=== PATIENT | female | born 1990 | race Caucasian/White ===

== ENCOUNTER 2016-11-19 20:59 | Outpatient (CLI) | payer OTHER, SELFPAY ==
[~2016-11-19] VITALS: Ht 162.6 cm; Wt 50.0 kg
[~2016-11-19 20:59] MED LIST: PRENTAB9 PO
[2016-11-19] MEDS ORDERED: LACTATED RINGER'S 1000 ML IV ONE (22:15)
--- NOTE | 2016-11-19 22:17 | IPNPDOC ---
Text Note Date of Service The patient was seen on 11/19/16 at 22:14. NOTE 26 y/o at ~31 weeks gestation, uncomplicated per pt (no chart to review and no passport) with ctx's causing 8/10 pain since 1700 tonight. No LOF/VB. No abnl d/c. Nl FM throughout. Last intx 4 days ago. Denioes dysuria or frequency VSS NST Cat 1 with ctx's noted q 3-4 min. SSE: fFN collected, not sent Genprobe also Wet prep collected, neg UA with 1+ LE,1+ bacetria and 10 WBC's. C/W possible UTI, urine Cx pending Cx L/T/C, fFN not sent No CVAT bilat a/p: PT Ctx's, possible UTI, will not Tx unless urine cx confirms. No PTL. Will hydrate with LR 2 L and reeval in 80-90 min after I do a on another pt. Re-eval at 0140: Continued to contract after 1.5 L LR therefore I gave her 0.25 Terb SQ. This spaced out and significantly diminished the intensity of her ctx's. Eventually they became regular again but were much more intense than prior. Wanted to go home to rest. I agree. Gave her Nifedipine 30 mg XR 1 tab prior to d/c and instructed her to take these 1 tab po q 24 hrs until all taken which will get her to 35+4 wks. STRICT PTL precautions, pt stated understanding. I rec pelvic rest and also no heavy lifting or significant physical activity for the next few weeks. Has f/u next week in the OB clinic. Sessions SESSIONS,COLIN Peña MD Nov 19, 2016 22:17
[2016-11-20] MEDS ORDERED: TERBUTALINE SULFATE 1 MG/ML VIAL (J3105) SC ONE (00:30)
[2016-11-20] MEDS ORDERED: TERBUTALINE SULFATE 1 MG/ML VIAL (J3105) As Ordered ONE (00:34)
== END 2016-11-20 01:50 | disposition home or self-care (01) ==
LOC: M LDO 20:59
PROVIDERS: ATTEND Obstetrics & Gynecology
DX: O47.03 False labor before 37 completed weeks of gestation, third trimester (principal); Z3A.31 31 weeks gestation of pregnancy
CPT/HCPCS: 59025; 81001; 87086; 87491; 87591; J3105

== ENCOUNTER 2017-01-05 09:02 | Inpatient (IN) | payer OTHER, SELFPAY ==
[2017-01-05] VITALS (30 sets, daily range): BP systolic 115–162; BP diastolic 57–89
[~2017-01-05] VITALS: Ht 162.6 cm; Wt 48.0 kg
[2017-01-05] MEDS ORDERED: TUMS500C PO (09:26)
[2017-01-05] MEDS ORDERED: LR 1,000 ML IV SCH (10:25)
[2017-01-05] MEDS ORDERED: LACTATED RINGER'S 1000 ML IV STA (10:25)
[2017-01-05 11:22] LABS: MEAN CORPUSCULAR HEMOGLOBIN 31.7 pg (27.0-33.0); MEAN CORPUSCULAR HGB CONC 35.4 g/dl (32.0-36.5); MEAN CORPUSCULAR VOLUME 89.6 fl (80.0-96.0); RED CELL DISTRIBUTION WIDTH 14.1 % (11.5-14.5); WHITE BLOOD COUNT 9.5 K/mm3 (4.0-10.0)
--- NOTE | 2017-01-05 12:37 | HPEPDOC ---
Obstetrical History & Physical General Date of Admission Jan 05, 2017 at 10:25 History of Present Illness Mariah is a 26yo with gordillo IUP at 37w4d by lmp who presents to L&D for regular, painful ctx. No LOF, scant vaginal bleeding with mucous. Feels good movement. Chief Complaint: Contractions, term Information Provided By: Patient Care Care: Good Care Dating Final EDC: Jan 22, 2017 Final EDC by: LMP Antepartum Course Diagnos(e)s renal bilateral pelviectasis, resolved. Small for dates, growth scan at 33wk: 27%ile Height (inches): 64 Admission Weight (lbs.): 112 Past Medical History Past Obstetrical History : Past Obstetrical History: Primgravida PARLOR MAID History: No pertinent history Past Medical History Medical History Neurofibromatosis type I, history of depression in 2013- resolved Surgical History: Tonsilectomy Family History Significant Family History: No pertinent family hx Social History Marital Status: Family situation: Spouse/partner home Psychosocial History: Depression * Smoker: non-smoker Alcohol: denies Drugs: denies Imunizations Tdap status: current Influenza Status: current Allergies Coded Allergies: No Known Allergies (Unverified , 09/29/16) Medications Scheduled Multivitamins/ ( 27-0.8 mg) 1 Tab Tab 1 TAB PO DAILY Scheduled PRN Calcium Carbonate (Tums) 500 Mg Chw 500 MG PO PRN PRN PRN HEARTBURN Physical Examination Physical Examination GENERAL: Alert and oriented times three. BREAST: . ABDOMEN: Gravid and non-tender to touch. FETUS: Is vertex (VTX) by sterile vaginal examination (SVE) HEART RATE: Regular rate and rhythm. LUNGS: Clear to auscultation (CTA). EXTREMITIES: trace edema BLE Vital Signs/I&O Vital Signs Date Time Temp Pulse Resp B/P Pulse Ox O2 Delivery O2 Flow Rate FiO2 01/05/17 09:21 98.7 76 18 129/86 Laboratory Data 24H LABS Laboratory Tests 2 01/05/17 11:00: Serology Scanned Report Hepatitis B Testing 01/05/17 11:08: Syphilis Serology NONREACTIVE CBC/BMP Laboratory Tests 01/05/17 11:08 Red Blood Count 4.46, Mean Corpuscular Volume 89.6, Mean Corpuscular Hemoglobin 31.7, Mean Corpuscular Hemoglobin Concent 35.4, Red Cell Distribution Width 14.1 Pertinent Laboratoy Data Blood Type: O+ RBC Antibody Screen: Negative HIV: Negative Hepatitis B: Negative Hepatitis C: Unknown Rapid Plasma Reagin: Nonreactive Rubella: Immune Varicella: Immune Chlamydia/Gonorrhea: Negative Group B Streptococcus: Negative Glucose Tolerance Test: 111 Anatomy Ultrasound Ultrasound Date: Sep 05, 2016 Placenta Location: Posterior Normal Anatomy: Yes (bilateral renal pelviectasis resolved on f/u ultrasound) Placenta Previa: No Other Ultrasounds Other Ultrasounds 12 Sep 2016: resolved bilateral renal pelviectasis 18 Dec 2016: s<d, EFW 27%ile Steroid Therapy Steroid Therapy: No Vaginal Examination Dilation: 4 cm Effacement: 80+% Station: -2 Cervical Consistency: Soft Cervical Position: Anterior Presentation: Cephalic presentation Assessment Heart Rate (FHR): 120 Variability: Moderate Accelerations: Positive Decelerations: None Tocometer Contractions: Yes Frequency: every 3-7 min. Duration: greater than 60 seconds Strength: palpated as moderate Assessment/Plan Assessment Mariah is a 26yo with gordillo IUP at 37w4d by lmp in active labor with SCE 4/90/-2 with ctx q3-5 min. Cat I tracing. GBS negative. Cephalic by SCE. PMhx significant for neurofibromatosis I and depression in 2012- resolved. PNC significant for resolved bilateral pelviectasis, s<d with recent GS showing EFW 27%ile Plan Admit and orient. 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 Diet: clear liquids Group B Streptococcus (GBS) negative Labs and intravenous (IV) per unit protocol. Lactated Ringers (LR): Bolus 500 mL, then at 125 mL/hr. Anticipate normal spontaneous delivery () epidural as desired C-S as appropriate. Dr. Yvan Rahman MD [place] MD Jan 05, 2017 12:37
[2017-01-05] MEDS ORDERED: FENTANYL 2MCG/ML ROPIVACAINE 0.2% NACL 250 ML CADD As Ordered ONE (14:51)
[2017-01-05] MEDS ORDERED: ePHEDrine SULFATE 25 MG/5 ML(5MG/ML) SYRINGE IV PRN (16:00)
[2017-01-05] MEDS ORDERED: EPIDURAL COMMENT XX SCH (16:00)
[2017-01-05] MEDS ORDERED: diphenhydrAMINE INJ 50MG/ML VIAL (J1200) IV PRN (16:00)
[2017-01-05] MEDS ORDERED: ONDANSETRON 4MG/2ML VIAL (J2405) IV PRN (16:00)
[2017-01-05] MEDS ORDERED: REFRIGERATOR IV KEYS XX PRN (16:00)
[2017-01-05] MEDS ORDERED: NALOXONE INJ 0.4 MG/1 ML VIAL (J2310) IV PRN (16:00)
[2017-01-05] MEDS ORDERED: FENTANYL/ROPIVACAINE/NACL CADD 250 ML EPIDURAL SCH (16:00)
[2017-01-05] MEDS ORDERED: EPIDURAL/PCA KEYS XX PRN (16:00)
[2017-01-05] MEDS ORDERED: OXYTOCIN 30 UNITS IN 0.9% NaCl 500ML IV BAG (J2590) As Ordered ONE (19:17)
[2017-01-05] MEDS ORDERED: DIBUCAINE 1% OINTMENT 30GM TOP PRN (23:30)
[2017-01-05] MEDS ORDERED: ACETAMINOPHEN 500 MG TAB PO PRN (23:30)
[2017-01-05] MEDS ORDERED: RHOGAM 300 MCG (1500 IU) INJ (J2790) IM SCH (23:30)
[2017-01-05] MEDS ORDERED: OXYTOCIN DRIP 30 UNITS in APPROPRIATE DILUENT 1 EA IV SCH (23:30)
[2017-01-05] MEDS ORDERED: MEASLES,MUMPS,RUBELLA VACCINE INJ (MMR-II) (90707) SC SCH (23:30)
--- NOTE | 2017-01-05 23:34 | DNPDOC ---
Delivery Note Delivery Note DATE OF DELIVERY: Jan 05, 2017 at 2301 PREDELIVERY DIAGNOSIS: 37 4/7 weeks' gestation and labor. 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 Gabriela Rahman MD ANESTHESIA: epidural ESTIMATED BLOOD LOSS: 150 mL. FINDINGS: 6 pound 2 ounce female , Score 9/9 DELIVERY SUMMARY: Mariah is a 26yo G1 now P1001 who was admitted to L&D for active labor. She had an uncomplicated of a viable female at 2301 on 05 Jan 2017 at 37w4d. Head delivered OA, restituted ANTOLIN. No nuchal cord. Right anterior shoulder delivered followed by posterior shoulder and corpus. Cord clamped x2 and cut by FOB. Infant mouth/nares bulb suctioned. Spontaneous cry noted. Baby placed on mother's abdomen. Apgars 9/9, weight 2782g or 6lb2oz. Cord blood obtained due to maternal blood type of O pos. With gentle downward guidance and suprapubic pressure, placenta delivered spontaneously and intact. Fundal massage until both uterine fundus and lower uterine segment firm; fundus at U-1. Pitocin 30 units IV bolus administered. Inspection of perineum and vaginal wall revealed superficial left labial laceration closed with 3.0 vicryl suture with good hemostasis. Mom and infant in stable condition. MD REYNA Lynch KATRINA D. MD Jan 05, 2017 23:34
[2017-01-06 01:06] VITALS: BP 146/78
[2017-01-06 06:52] VITALS: BP 123/85
[2017-01-06] MEDS: IBUPROFEN 800 MG TAB PO PRN ×2 (08:04→17:19)
--- NOTE | 2017-01-06 08:23 | IPNPDOC ---
Text Note Date of Service The patient was seen on 01/06/17. NOTE Mariah is a 26yo G1 now P1001 doing well on PPD 1 s/p uncomplicated of viable female infant on 01/05. Tolerating regular diet, ambulating and voiding without problem. Breast feeding. Lochia minimal. Pain controlled. Vitals wnl General: WDWN, resting comfortable Cardiac: S1S2 present, no murmur Lungs: CTAB, no w/c/r Abdomen: soft, non-tender to palpation, fundus firm at u-1cm Extremities: trace edema of BLE, no tenderness with palpation of calves Assessment: Mariah is a 26yo G1 now P1001 doing well on PPD 1 s/p uncomplicated . Hemodynamically stable with no e/o infection. Plan: likely discharge to home tomorrow, routine care today, regular diet, d/c IV, encourage breast feeding, motrin/tylenol prn pain, desires minipill for contraception Dr. Yvan Rahman MD [facility] Institute[facility] VS,Nelly, I+O VS, Nelly, I+O Laboratory Tests 01/05/17 11:08 Red Blood Count 4.46, Mean Corpuscular Volume 89.6, Mean Corpuscular Hemoglobin 31.7, Mean Corpuscular Hemoglobin Concent 35.4, Red Cell Distribution Width 14.1 Vital Signs Date Time Temp Pulse Resp B/P Pulse Ox O2 Delivery O2 Flow Rate FiO2 01/06/17 06:52 98.3 83 16 123/85 I&O- Last 24 Hours up to 6 AM 01/06/17 05:59 Intake Total 2408 ml Output Total 1250 ml Balance 1158 ml YVAN RAHMAN MD Jan 06, 2017 08:23
[2017-01-06] MEDS: PRENATAL VITAMIN TAB PO SCH (09:05)
[2017-01-06] MEDS: DOCUSATE SODIUM 100 MG CAP PO SCH ×2 (09:05→21:13)
[2017-01-06 18:19] VITALS: BP 132/89
[2017-01-07 05:30] VITALS: BP 135/77
[2017-01-07] MEDS ORDERED: COLA100C PO (07:11)
[2017-01-07] MEDS ORDERED: MOTR200T44 PO (07:12)
[2017-01-07] MEDS ORDERED: TYLE325C PO (07:12)
[2017-01-07] MEDS ORDERED: DIBU1OIN TOP (07:13)
[2017-01-07] MEDS: DOCUSATE SODIUM 100 MG CAP PO SCH (09:04)
[2017-01-07] MEDS: PRENATAL VITAMIN TAB PO SCH (09:05)
--- NOTE | 2017-01-07 12:28 | DSES ---
DATE OF ADMISSION: 01/05/2017 DATE OF DISCHARGE: This lady is 26, 1, now para 1, who had an uncomplicated vaginal delivery of a live female , 6 pounds 2 ounces, 2787 grams, of 9 and 9 at one and five minutes respectively. She had a left labial laceration. Also, she had an epidural in place. On discharge, we discussed phlebitis, cystitis, mastitis, endometritis and cellulitis, diet, exercise, pain management, perineal breast and wound care. She is asking for a breast pump for which we filled out the prescription and will give it to her with the Motrin and her lanolin. We had a term , intrauterine (IUP), active labor, who delivered a live female infant. On discharge, hemoglobin is 14.2, hematocrit 40.0, and platelets are 209. Her blood pressure was 135/77, respirations 20, pulse 63 and temperature 96.8. On rest of the examination, she is normocephalic, atraumatic. Neck full range of motion. Pupils equal and reactive to light. Distal pulses symmetric. No evidence of deep vein thrombosis (DVT), pulmonary embolism (PE) or superficial phlebitis. No wheezes or rhonchi. No costovertebral angle (CVA) tenderness. Uterus 2 below. Lochia is moderate. Four quadrant bowel sounds are noted. Perineum is healing. No rashes, lesions or pruritus. No arthralgia, myalgia. No complaints of cough, wheezes, shortness of breath or dyspnea on exertion. No chest pain. Not bleeding. Neuro complete. No incontinency, urgency or frequency. No nausea, vomiting, diarrhea or constipation. No significant BARREL FILLER, past history, past surgical history, or family history. She does not smoke or drink or abuse drugs. She has no domestic violence. In summary, we have a term gestation who delivered a live female infant, for discharge and to followup in 6 weeks at the office.
== END 2017-01-07 13:30 | disposition home or self-care (01) | DRG 775 ==
LOC: M LDO 09:02 → M LDI 10:25 → M OBS 01-06 00:51
PROVIDERS: ADMIT Obstetrics & Gynecology; ATTEND Obstetrics & Gynecology
PROC: 10E0XZZ Delivery of Products of Conception, External Approach (ICD-10-PCS; principal; 2017-01-05)
PROC: 0HQ9XZZ Repair Perineum Skin, External Approach (ICD-10-PCS; 2017-01-05)
DX: O36.5930 Maternal care for other known or suspected poor fetal growth, third trimester, not applicable or unspecified (principal); Z37.0 Single live birth; Z3A.37 37 weeks gestation of pregnancy; O70.0 First degree perineal laceration during delivery

== ENCOUNTER 2017-01-15 17:22 | Emergency (ER) | payer OTHER ==
[~2017-01-15] VITALS: Ht 162.6 cm; Wt 45.4 kg
[~2017-01-15 17:22] MED LIST changes: +COLA100C PO; +DIBU1OIN TOP; +MOTR200T44 PO; +TUMS500C PO; +TYLE325C PO
[2017-01-15 21:11] LABS: BASO % 0.4 % (0.0-1.0); EOS # 0.1 K/mm3 (0.0-0.50); EOS % 0.9 % (0.0-3.0); LARGE UNSTAINED CELL # 0.1 K/mm3 (0.0-0.4); LARGE UNSTAINED CELL % 0.7 % (0.0-4.0); LYMPH # 1.8 K/mm3 (1.5-6.5); LYMPH % 14.9 % (24.0-44.0); MEAN CORPUSCULAR HEMOGLOBIN 32.4 pg (27.0-33.0); MEAN CORPUSCULAR HGB CONC 34.9 g/dl (32.0-36.5); MEAN CORPUSCULAR VOLUME 92.8 fl (80.0-96.0); MONO # 0.6 K/mm3 (0.0-0.8); MONO % 5.5 % (0.0-5.0); NEUTROPHILS % 77.6 % (36.0-66.0); PLATELET COUNT, AUTOMATED 397 k/mm3 (150-450); RED CELL DISTRIBUTION WIDTH 13.5 % (11.5-14.5); WHITE BLOOD COUNT 11.6 K/mm3 (4.0-10.0)
[2017-01-15] MEDS: PERCOCET 5MG/325MG TAB PO ONE (21:32)
[2017-01-15 21:50] LABS: ALBUMIN 3.8 GM/DL (3.2-5.2); ALBUMIN/GLOBULIN RATIO 0.84 (1.00-1.93); ALKALINE PHOSPHATASE 141 U/L (45-117); ALT/SGPT 19 U/L (12-78); ANION GAP 11 MEQ/L (8-16); AST/SGOT 12 U/L (15-37); BILIRUBIN,DIRECT < 0.1 MG/DL (0.0-0.2); BILIRUBIN,TOTAL 0.3 MG/DL (0.2-1.0); BLOOD UREA NITROGEN 18 MG/DL (7-18); CALCIUM LEVEL 9.5 MG/DL (8.5-10.1); CARBON DIOXIDE LEVEL 26 MEQ/L (21-32); CHLORIDE LEVEL 106 MEQ/L (98-107); CREATININE FOR GFR 0.59 MG/DL (0.55-1.02); GLOMERULAR FILTRATION RATE > 60.0 (>60); GLUCOSE, FASTING 75 MG/DL (70-105); HCG, SERUM QUANTITATIVE 63 MIU/ML; POTASSIUM SERUM 4.1 MEQ/L (3.5-5.1); SODIUM LEVEL 143 MEQ/L (136-145); TOTAL PROTEIN 8.3 GM/DL (6.4-8.2)
--- NOTE | 2017-01-15 22:50 | REPUSA ---
CLINICAL HISTORY: Ten days post TECHNIQUE: Realtime sonographic images were obtained in multiple projections. COMMENTS: The uterine size is 9.9 cm in CC x 6.8 cm in AP height x 8.5 cm in transverse width. The AP endometr ial thickness measuring 47.0 mm. Endometrial fluid noted. There is no evidence of free fluid within the pelvic cul-de-sac. The right ovary measures 2.7 cm in CC x 1.5 cm in AP x 1.4 cm in transverse and the left ovary measur es 3.4 cm in CC x 1.7 cm in AP x 1.1 cm in transverse. Both ovaries are free of solid or cystic mass . There is no evidence for abnormal vascularity. IMPRESSION: Thickened endometrium with complex fluid. This is suspicious for endometritis. Clinical correlation i s recommended. Thank you for your kind referral of this patient. We appreciate the opportunity to participate in thi s patient's care.
[2017-01-15 23:17] VITALS: BP 129/68
== END 2017-01-15 23:30 | disposition home or self-care (01) ==
LOC: M ED 19:54
DX: O72.1 Other immediate postpartum hemorrhage (principal); Z79.899 Other long term (current) drug therapy

== ENCOUNTER 2017-11-19 19:19 | Emergency (ER) | payer OTHER ==
[2017-11-19 22:30] LABS: AMORPHOUS SEDIMENT MODERATE (NEGATIVE); APPEARANCE, URINE CLOUDY (CLEAR); BACTERIA, URINE AUTO NEGATIVE (NEGATIVE); BILIRUBIN, URINE AUTO NEGATIVE (NEGATIVE); BLOOD, URINE BLOOD 1+ (NEGATIVE); COLOR, URINE YELLOW (YELLOW); GLUCOSE, URINE (UA) AUTO NEGATIVE (NEGATIVE); KETONE, URINE AUTO TRACE mg/dL (NEGATIVE); LEUKOCYTE ESTERASE, URINE AUTO NEGATIVE (NEGATIVE); MUCUS, URINE SMALL (NEGATIVE); NITRITE, URINE AUTO NEGATIVE (NEGATIVE); PROTEIN, URINE AUTO NEGATIVE (NEGATIVE); RBC, URINE AUTO 7 /HPF (0-3); SQUAMOUS EPITHELIAL CELL UR AU 0 /HPF (0-6); WBC, URINE AUTO 1 /HPF (0-3)
[2017-11-19 22:31] LABS: BASO % 0.4 % (0.0-1.0); EOS # 0.1 10^3/uL (0.0-0.50); EOS % 0.5 % (0.0-3.0); HEMATOCRIT 37.5 % (36.0-47.0); HEMOGLOBIN 13.2 g/dl (12.0-16.0); IMMATURE GRANULOCYTE % 0.4 % (0-0); LYMPH # 1.9 10^3/uL (1.5-6.5); LYMPH % 16.4 % (24.0-44.0); MEAN CORPUSCULAR HEMOGLOBIN 30.3 pg (27.0-33.0); MEAN CORPUSCULAR HGB CONC 35.2 g/dl (32.0-36.5); MONO % 8.4 % (0.0-5.0); NEUTROPHILS # 8.4 10^3/uL (1.8-7.7); NEUTROPHILS % 73.9 % (36.0-66.0); PLATELET COUNT, AUTOMATED 254 10^3/uL (150-450); RED BLOOD COUNT 4.36 10^6/uL (4.00-5.40); RED CELL DISTRIBUTION WIDTH 14.5 % (11.5-14.5); WHITE BLOOD COUNT 11.4 10^3/uL (4.0-10.0)
[2017-11-19] MEDS: METOCLOPRAMIDE INJ 10MG/2ML VIAL (J2765) IV (22:39)
[2017-11-19] MEDS: ACETAMINOPHEN TAB 650MG DOSE (2X325MG) PO (22:40)
[2017-11-19 23:10] LABS: ALBUMIN 4.4 GM/DL (3.2-5.2); ALBUMIN/GLOBULIN RATIO 1.29 (1.00-1.93); ALKALINE PHOSPHATASE 62 U/L (45-117); ALT/SGPT 12 U/L (12-78); ANION GAP 8 MEQ/L (8-16); AST/SGOT 13 U/L (7-37); BILIRUBIN,TOTAL 0.3 MG/DL (0.2-1.0); BLOOD UREA NITROGEN 10 MG/DL (7-18); CALCIUM LEVEL 9.6 MG/DL (8.5-10.1); CARBON DIOXIDE LEVEL 25 MEQ/L (21-32); CHLORIDE LEVEL 105 MEQ/L (98-107); GLOMERULAR FILTRATION RATE > 60.0 (>60); GLUCOSE, FASTING 83 MG/DL (70-105); HCG, SERUM QUANTITATIVE 112183 MIU/ML; LIPASE 205 U/L (73-393); SODIUM LEVEL 138 MEQ/L (136-145); TOTAL PROTEIN 7.8 GM/DL (6.4-8.2)
== END 2017-11-19 23:48 | disposition home or self-care (01) ==
LOC: M ED 19:19
DX: O99.89 Other specified diseases and conditions complicating pregnancy, childbirth and the puerperium (principal); R10.9 Unspecified abdominal pain; R11.0 Nausea; Z3A.09 9 weeks gestation of pregnancy; O99.340 Other mental disorders complicating pregnancy, unspecified trimester; F33.9 Major depressive disorder, recurrent, unspecified; O99.611 Diseases of the digestive system complicating pregnancy, first trimester; K58.9 Irritable bowel syndrome, unspecified; Z87.891 Personal history of nicotine dependence; Z91.040 Latex allergy status
CPT/HCPCS: J2765

== ENCOUNTER 2018-05-09 13:10 | Outpatient (CLI) | payer OTHER | END 2018-05-09 14:03 | disposition home or self-care (01) | LOC: M LDO 13:10 | DX: O26.893 Other specified pregnancy related conditions, third trimester (principal); N89.8 Other specified noninflammatory disorders of vagina; Z3A.32 32 weeks gestation of pregnancy | CPT/HCPCS: 59025 ==

== ENCOUNTER 2018-06-14 04:37 | Inpatient (IN) | payer OTHER ==
[2018-06-14 05:52] LABS: HEMATOCRIT 33.2 % (36.0-47.0); HEMOGLOBIN 12.1 g/dl (12.0-15.5); MEAN CORPUSCULAR HEMOGLOBIN 34.7 pg (27.0-33.0); MEAN CORPUSCULAR HGB CONC 36.4 g/dl (32.0-36.5); MEAN CORPUSCULAR VOLUME 95.1 fl (80.0-96.0); PLATELET COUNT, AUTOMATED 249 10^3/uL (150-450); RED BLOOD COUNT 3.49 10^6/uL (4.00-5.40); RED CELL DISTRIBUTION WIDTH 13.6 % (11.5-14.5); WHITE BLOOD COUNT 10.9 10^3/uL (4.0-10.0)
[2018-06-14] MEDS: LACTATED RINGER'S 1000 ML IV (05:53)
[2018-06-14] MEDS ORDERED: FENTANYL 2MCG/ML ROPIVACAINE 0.2% IN 0.9% NACL 200ML IVBAG As Ordered (06:33)
[2018-06-14] MEDS: FENTANYL/ROPIVACAINE/NACL BAG 200 ML EPIDURAL (07:30)
[2018-06-14] MEDS ORDERED: ONDANSETRON 4MG/2ML VIAL (J2405) IV (07:30)
[2018-06-14] MEDS ORDERED: EPIDURAL/PCA KEYS XX (07:30)
[2018-06-14] MEDS ORDERED: diphenhydrAMINE INJ 50MG/ML VIAL (J1200) IV (07:30)
[2018-06-14] MEDS ORDERED: REFRIGERATOR IV KEYS XX (07:30)
[2018-06-14] MEDS ORDERED: LACTATED RINGER'S 1000 ML IV (07:30)
[2018-06-14] MEDS ORDERED: ePHEDrine SULFATE 25 MG/5 ML(5MG/ML) SYRINGE IV (07:30)
[2018-06-14] MEDS ORDERED: EPIDURAL COMMENT XX (07:30)
[2018-06-14] MEDS ORDERED: NALOXONE INJ 0.4 MG/1 ML VIAL (J2310) IV (07:30)
[2018-06-14] MEDS ORDERED: OXYTOCIN 30 UNITS IN 0.9% NaCl 500ML IV BAG (J2590) As Ordered (07:31)
[2018-06-14] MEDS: LR 1,000 ML IV (07:34)
[2018-06-14] MEDS: OXYTOCIN DRIP 30 UNITS in APPROPRIATE DILUENT 1 EA IV (10:16)
[2018-06-14] MEDS ORDERED: METHYLERGONOVINE MALEATE 0.2 MG TAB PO (10:30)
[2018-06-14] MEDS ORDERED: DOCUSATE SODIUM 100 MG CAP PO (10:30)
[2018-06-14] MEDS ORDERED: DIBUCAINE 1% OINTMENT 30GM TOP (10:30)
[2018-06-14] MEDS: PRENATAL VITAMINS CHEWABLE TABLET PO (12:57)
[2018-06-14] MEDS: FERROUS SULFATE 325MG TAB PO (12:57)
[2018-06-14] MEDS: IBUPROFEN 800 MG TAB PO ×2 (16:09→23:43)
[2018-06-14] MEDS: ACETAMINOPHEN TAB 650MG DOSE (2X325MG) PO (20:05)
[2018-06-15] MEDS: FERROUS SULFATE 325MG TAB PO (09:08)
[2018-06-15] MEDS: medroxyPROGESTERone ACET IM SUSP 150 MG/ML VIAL (J1050) IM (09:08)
[2018-06-15] MEDS: PRENATAL VITAMINS CHEWABLE TABLET PO (09:08)
== END 2018-06-15 21:13 | disposition home or self-care (01) | DRG 775 ==
LOC: M LDO 04:37 → M LDI 04:44 → M OBS 11:57
PROVIDERS: Obstetrics & Gynecology
PROC: 10E0XZZ Delivery of Products of Conception, External Approach (ICD-10-PCS; principal; 2018-06-14)
DX: O71.82 Other specified trauma to perineum and vulva (principal); Z3A.37 37 weeks gestation of pregnancy; Z37.0 Single live birth